=== PATIENT | female | born 1965 | race Caucasian/White ===

== ENCOUNTER 2021-08-22 21:04 | Observation (INO) ==
[2021-08-22 22:19] LABS: Basophils # 0.1 K/mcL (0.0-0.2); Basophils % 1.7 %; Eosinophils # 0.3 K/mcL (0.0-0.6); Eosinophils % 4.7 %; Hematocrit 35.7 % (35.3-44.9); Hemoglobin 11.8 g/dL (11.5-15.4); Immature Granulocytes % 0.3 % (0-4); Lymphocytes # 2.3 K/mcL (0.6-4.6); Lymphocytes % 35.1 %; Mean Corpuscular HGB Conc 33.1 g/dL (31.6-35.5); Mean Corpuscular Hemoglobin 30.7 pg (28.0-33.3); Monocytes # 0.7 K/mcL (0.0-1.3); Monocytes % 10.7 %; Neutrophils # 3.1 K/mcL (1.6-8.9); Platelet Count 234 K/mcL (140-400); Red Blood Count 3.84 M/mcL (3.82-4.97); Red Cell Distribution Width 14.5 % (11.5-14.5); Segmented Neutrophils % 47.5 %; White Blood Count 6.6 K/mcL (4.3-11.1)
[2021-08-22 22:44] LABS: BUN/Creatinine Ratio 18 (6-26); Blood Urea Nitrogen 16 mg/dL (6-20); Calcium 9.8 mg/dL (8.6-10.3); Carbon Dioxide 27 mEq/L (23-29); Chloride 104 mEq/L (98-107); Glucose 105 mg/dL (70-105); Osmolality,Calculated 288 (280-300); Sodium 138 mEq/L (136-145); eGFR For African Americans > 60 (> 60); eGFR For Non-African Americans > 60 (> 60)
[2021-08-22 22:45] LABS: Troponin I < 0.03 ng/mL (< 0.04)
[2021-08-23] MEDS ORDERED: Aspirin Enteric Coated 325 MG Tablet PO ONE (04:08)
[2021-08-23 04:39] LABS: Amylase 41 Units/L (29-103); Lipase 17 Units/L (11-82)
[2021-08-23 04:42] LABS: Troponin I < 0.03 ng/mL (< 0.04)
[2021-08-23] MEDS ORDERED: Iopamidol - 370 500 ML MLS IVP ONE (04:45)
[2021-08-23 06:17] LABS: Alanine Aminotransferase 8 Units/L (7-52); Albumin 4.5 g/dL (3.5-5.7); Albumin/Globulin Ratio 1.4 (1.1-2.2); Alkaline Phosphatase 77 Units/L (34-104); Aspartate Amino Transferase 14 Units/L (13-39); Bilirubin,Direct 0.1 mg/dL (0.0-0.2); Bilirubin,Indirect 0.5 mg/dL (0.0-1.0); Bilirubin,Total 0.6 mg/dL (0.3-1.0); Globulin 3.2 g/dL (2.4-3.5); Total Protein 7.7 g/dL (6.4-8.9)
[2021-08-23] MEDS ORDERED: Ondansetron 4 MG/2 ML VIAL IVP PRN (08:45)
[2021-08-23] MEDS ORDERED: Naloxone 0.4 MG/ML INJ IVP PRN (08:45)
[2021-08-23] MEDS ORDERED: Acetaminophen 325 MG TABLET PO PRN (08:45)
[2021-08-23] MEDS ORDERED: Nitroglycerin 0.4 MG TAB.SUBL SL PRN (08:48)
[2021-08-23] MEDS ORDERED: Perflutren Lipid Microsphere 1.3 ML in 0.9 % Sodium Chloride 8.7 ML IVP PRN (08:48)
[2021-08-23] MEDS: *HR* Heparin 5,000 UNIT/ML VIAL SQ SCH ×2 (15:12→20:51)
[2021-08-24 03:27] VITALS: TEMP 98
[2021-08-24] MEDS: *HR* Heparin 5,000 UNIT/ML VIAL SQ SCH (05:11)
[2021-08-24 06:04] LABS: Basophils # 0.1 K/mcL (0.0-0.2); Basophils % 1.4 %; Eosinophils # 0.3 K/mcL (0.0-0.6); Eosinophils % 4.4 %; Hematocrit 34.7 % (35.3-44.9); Hemoglobin 11.5 g/dL (11.5-15.4); Immature Granulocytes % 0.3 % (0-4); Lymphocytes # 2.1 K/mcL (0.6-4.6); Lymphocytes % 32.2 %; Mean Corpuscular HGB Conc 33.1 g/dL (31.6-35.5); Mean Corpuscular Hemoglobin 30.9 pg (28.0-33.3); Mean Corpuscular Volume 93.3 fL (83.0-100.0); Mean Platelet Volume 9.9 fL (9.4-12.4); Monocytes # 0.7 K/mcL (0.0-1.3); Neutrophils # 3.4 K/mcL (1.6-8.9); Platelet Count 218 K/mcL (140-400); Red Blood Count 3.72 M/mcL (3.82-4.97); Red Cell Distribution Width 14.6 % (11.5-14.5); Segmented Neutrophils % 51.7 %; White Blood Count 6.5 K/mcL (4.3-11.1)
[2021-08-24 06:38] LABS: Alanine Aminotransferase 7 Units/L (7-52); Albumin/Globulin Ratio 1.5 (1.1-2.2); Alkaline Phosphatase 68 Units/L (34-104); Aspartate Amino Transferase 11 Units/L (13-39); BUN/Creatinine Ratio 14 (6-26); Bilirubin,Total 0.7 mg/dL (0.3-1.0); Blood Urea Nitrogen 12 mg/dL (6-20); Calcium 9.2 mg/dL (8.6-10.3); Carbon Dioxide 27 mEq/L (23-29); Chloride 106 mEq/L (98-107); Chol/HDL Ratio 2.4 (0-4.9); Cholesterol 165 mg/dL (< 200); Globulin 2.7 g/dL (2.4-3.5); Glucose 89 mg/dL (70-105); HDL Cholesterol 68 mg/dL (40-59); LDL Cholesterol,Calculated 90 mg/dL (< 100); Osmolality,Calculated 287 (280-300); Potassium 3.8 mEq/L (3.5-5.1); Sodium 139 mEq/L (136-145); Total Protein 6.7 g/dL (6.4-8.9); Triglycerides 35 mg/dL (< 150); eGFR For African Americans > 60 (> 60); eGFR For Non-African Americans > 60 (> 60)
[2021-08-24] MEDS ORDERED: Regadenoson 0.4 MG/5 ML SYRINGE IVP ONE (07:24)
[2021-08-24 08:21] VITALS: O2SAT 100
[2021-08-24] MEDS ORDERED: Aspirin 81 MG TAB.CHEW PO SCH (09:00)
[2021-08-24 11:40] VITALS: BP 149/75; PULSE 59
== END 2021-08-24 12:22 | disposition home or self-care (01) ==
LOC: 3ANU 21:04 → EMEROOARM 21:04 → SUATTDRO 08-23 09:54 → 3ANU 08-23 11:07
PROVIDERS: ADMIT General Practice; ATTEND Internal Medicine